=== PATIENT | male | born 1990 | race Caucasian/White ===

== ENCOUNTER 2020-01-06 15:04 | Emergency (ER) | payer OTHER, SELFPAY ==
[2020-01-06 15:10] VITALS: BP 129/81; PULSE 89; RESP 16; TEMP 36.1; O2SAT 97
--- NOTE | 2020-01-06 15:25 | ED.GENADUL_ITS ---
Discharge Plan Disposition Patient Disposition: HOME Condition: Good Discharge Details Chief Complaint: EyeProblem Clinical Impression: Abrasion, corneal Primary Care Provider: None,None ED Provider: Dustin Conde Home Meds and New Rx's Prescriptions: No Action No Known Home Meds RF: 0 Discharge Instructions Instructions: Corneal Abrasion (ED) Additional Instructions: At this time you have a mild corneal abrasion from the wound, I cannot see any wood in the eye currently. Please apply the erythromycin ointment 3 times daily in a thin strip. Please follow-up with Dr. Call[facility] center if your symptoms persist. If you notice any worsening of your symptoms, or any new symptoms such as vomiting, diarrhea, fever, chills, shortness of breath, chest pain, numbness, weakness, or fainting , please return immediately to the emergency department for reevaluation. Please follow up with your primary care provider as soon as possible for reassessment and reevaluation. As always, it was a pleasure participating in your medical care today. Referrals: [facility], [place] [Outside] Flip Loving MD [ NON-[facility] STAFF PHYSICIAN] - Discharge Data Discharge Date/Time-TO BE ENTERED AT DEPARTURE: 01/06/20 15:35 Medical Decision Making Pleasant 29-year-old male with no past medical history who does not wear contact lenses whose immunizations are up-to-date presents for working with wood and feeling like he got a wood chip stuck in his eye. Washing it out at home, was unsuccessful, but did feel like he got the wood chip out by the time he got to the ER. Current exam and eversion of both legs shows no evidence of retained foreign body, most very small corneal abrasion over the anterior aspect, no other abnormality that I can appreciate at this time. Suspect that he did have a foreign body causing subsequent mild corneal abrasion. Pain completely resolved with tetracaine. Will give erythromycin ointment for home use of comfort. Recommended close follow-up with Dr. Callaway. I have extensively reviewed the treatment plan and discharge instructions with the patient. I have addressed all patient concerns at this time. The patient was made aware of what symptoms to monitor for that would warrant a return to the emergency department. Discussed the plan with the patient, they demonstrate verbal understanding and agreement with our assessment and plan at this time. HPI General Date/Time Provider Initiated Documentation: 01/06/20 15:25 . HPI Narrative: Pleasant 29-year-old male with no significant past medical history who does not wear contact lenses whose immunizations are up-to-date who presents for concern of foreign body in his left eye. The patient was working with wood when he feels he got a wood chip stuck in his left eye. He spent 30 to 45 minutes washing it with water, but was unable to get it out. On his arrival to the ED he thought he might of got the piece out but was uncertain. He denies any vision changes, headache, numbness tingling weakness or other complaints. Related Data Home Medications Medication Instructions Recorded Confirmed Unknown [No Known Home Meds] 11/03/14 01/06/20 Allergies Allergy/AdvReac Type Severity Reaction Status Date / Time No Known Allergies Allergy Unverified 01/06/20 15:14 General Stated Complaint: EyeProblem PAUL: 4 Review of Systems All systems reviewed & are unremarkable except as noted in HPI and below PFSH Social History Smoking/Tobacco Use Status: Never Alcohol Intake: current Alcohol Intake frequency: holidays/special occasions only Drug use: Never Substance use type: does not use Do you feel safe at home: Yes Do you feel safe in your relationship?: Yes Exam Narrative Exam Narrative: 1.Const: Well-nourished, Well-developed, appearing stated age 2.Eyes: PERRL, no conjunctival injection, and symmetrical lids. Left eye: EOMI, PERRL, Peripheral vision intact. No nystagmusNo clinical signs of septal/orbital cellulitis, no redness around the eye, no proptosis. No hyphema, no signs of trauma around the eye, no periorbital emphysema. No sluggishness of the pupil. No ophthalmoplegia. No afferent pupillary defect. Fluorescein exam utilizing slit lamp does show very minimal corneal abrasion the anterior aspect, no evidence of foreign body,, negative Katey sign. Visual acuity as documented in chart. Eversion of the upper and lower lids demonstrates no evidence of retained foreign body. 3.ENT: Atraumatic external nose and ears. Moist MM. Neck: Symmetric, trachea midline, No thyromegaly. 4.CVS: +S1/S2, No murmurs or gallops. Peripheral pulses 2+ and equal in all extremities. Brisk capillary refill in all extremities. 5.RESP: Unlabored respiratory effort. Clear to auscultation bilaterally. No wheezes rales or rhonchi 6.GI: Soft, Nontender/Nondistended, No hepatosplenomegaly. No guarding or rebound. 7.MSK: Normocephalic/Atraumatic, Extremities w/o deformity or ttp No cyanosis or clubbing, Normal movement of all extremities 8.Skin: Warm, Dry. No rashes or lesions. 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 Sensation grossly intact, no focal neurologic deficits. 10.Psych: (AAO) x3. Appropriate mood and affect Course Vital Signs Vital signs: Vital Signs Temperature 36.1 C L 01/06/20 15:10 Pulse 89 01/06/20 15:10 Respiratory Rate 16 01/06/20 15:10 Blood Pressure 129/81 01/06/20 15:10 Pulse Oximetry 97 01/06/20 15:10 Temperature 36.1 C L 01/06/20 15:10 Temperature Source Tympanic 01/06/20 15:10 Pulse 89 01/06/20 15:10 Respiratory Rate 16 01/06/20 15:10 Respiratory Effort Non-Labored 01/06/20 15:13 Blood Pressure 129/81 01/06/20 15:10 Blood Pressure Position Sitting 01/06/20 15:10 Pulse Oximetry 97 01/06/20 15:10 Oxygen Delivery Method Room Air 01/06/20 15:10 Oxygen Flow Rate 0 01/06/20 15:10 Pain Level 3 01/06/20 15:10
== END 2020-01-06 15:35 | disposition home or self-care (01) ==
PROVIDERS: Emergency Provider Student in an Organized Health Care Education/Training Program
DX: S05.02XA Injury of conjunctiva and corneal abrasion without foreign body, left eye, initial encounter (principal); W20.8XXA Other cause of strike by thrown, projected or falling object, initial encounter
CPT/HCPCS: 99284; 99283

== ENCOUNTER 2023-09-02 16:17 | Emergency (ER) | payer OTHER, SELFPAY ==
[2023-09-02 16:32] VITALS: BP 142/90; PULSE 82; RESP 16; TEMP 36.4; O2SAT 100
--- NOTE | 2023-09-02 17:35 | ED.GENADUL_ITS ---
Discharge Plan Disposition Patient Disposition: Home Discharge Details Clinical Impression: Laceration of left index finger Primary Care Provider: Unknown,Unknown ED Provider: Vicente Steele Discharge Instructions Instructions: Finger Laceration (ED) Additional Instructions: You are seen in the emergency department for your finger laceration which was closed with 8 stitches. As we discussed, please follow-up in 7 to 10 days in the emergency department or urgent care or with a primary care provider to have your stitches removed. Please return sooner if your finger develops any signs of foul-smelling drainage streaking signs of infection or if you develop any fevers. For your pain please take medications as follows: 1. Take acetaminophen (Tylenol), 1,000 mg (two 500 mg tabs) every 6 hours 2. Take ibuprofen (Advil), 400 mg every 6 hours. Discharge Data Discharge Date/Time-TO BE ENTERED AT DEPARTURE: 09/02/23 17:56 HPI General Date/Time Provider Initiated Documentation: 09/02/23 16:45 . HPI Narrative: MDM Primary survey intact. Reassuring shock index. On secondary survey patient has an approximately 3 cm laceration to palmar surface of index finger on left which will require primary closure. Please see separate procedure note. Tetanus updated in the ED. Patient was placed in an AlumaFoam splint such that his injury could heal. No pain out of proportion to suggest necrotizing soft tissue infection. No fluctuance to suggest abscess. He was advised ED return for streaking signs of infection fevers chills or any foul-smelling drainage. He was advised primary care urgent care or ED return in 7 to 10 days to have sutures removed.He understood his return indications and was discharged with an empiric trial of expectant outpatient management. Suspect mildly elevated blood pressure was secondarily to pain. Chronic conditions affecting the care of the patient: N/A History obtained from an outside historian: N/A External record review: N/A Medications: Acetaminophen tetanus Social determinants of health affecting disposition: N/A Management discussed with: N/A Treatment/interventions considered: N/A Response to therapies provided: N/A HPI This is a [id number] 33-year-old male arrived to the emergency department via private vehicle in the setting of a laceration he sustained just prior to arrival to his left index finger. Patient was reportedly cleaning dishes when he inadvertently cut his hand on a tobacco blender. He is not sure when his last tetanus was. He did not take any medications at home. He was able to control the bleeding with pressure. He denies any other injuries. No preceding chest pain nausea vomiting nor headache. Exam General: Well-appearing in no acute distress speaking in complete sentences. Head: Normocephalic, atraumatic. Eye: Extraocular eye movements intact. No conjunctival injection. No scleral icterus. Ear, nose, mouth, throat: Grossly normal inspection. Normal voice, handling secretions normally. Neck: Trachea midline. Cardiovascular: Well-perfused distal extremities. Respiratory: Nonlabored respiration. Gastrointestinal: Nondistended abdomen. Musculoskeletal: On the palmar aspect of the left thumb from approximately just distal to the PIP joint to just distal to the DIP joint there is a hemostatic approximately 3 cm laceration that violates the subcutaneous tissue. Sensation and motor function intact throughout the left index finger. Patient is able to fully flex and extend the left index finger across the MCP, PIP, and DIP joints. Cap refill less than 2 seconds in the left index fingertip. 2+ left radial pulse. Left hand warm well-perfused. Skin: Normal for age and race, grossly normal temperature and turgor. No acute rash. Neurologic: Alert and appropriate, no apparent acute deficits. Psychiatric: Mood and manner are appropriate. Grooming and personal hygiene are appropriate. Related Data Allergies Allergy/AdvReac Type Severity Reaction Status Date / Time acetaminophen [From Vicodin] Allergy Intermediate Other (See Unverified 09/02/23 16:36 Comment) hydrocodone [From Vicodin] Allergy Intermediate Other (See Unverified 09/02/23 16:36 Comment) General Stated Complaint: Laceration PAUL: 3 PFSH All Active Problems (Updated 09/02/23 @ 17:36 by Vicente Steele MD) Laceration of left index finger (Acute) Social History Smoking/Tobacco Use Status: Never Smoking risk assessment performed?: Yes Alcohol Intake: current Alcohol Intake frequency: holidays/special occasions only Drug use: Never Substance use type: does not use Housing: house Do you feel safe at home: Yes Do you feel safe in your relationship?: Yes Course Vital Signs Vital signs: Vital Signs Temperature 36.4 C L 09/02/23 16:32 Pulse 82 09/02/23 16:32 Respiratory Rate 16 09/02/23 16:32 Blood Pressure 142/90 H 09/02/23 16:32 Pulse Oximetry 100 09/02/23 16:32 Temperature 36.4 C L 09/02/23 16:32 Temperature Source Temporal Artery Scan 09/02/23 16:32 Pulse 82 09/02/23 16:32 Respiratory Rate 16 09/02/23 16:32 Respiratory Effort Normal, Non-Labored 09/02/23 16:37 Blood Pressure 142/90 H 09/02/23 16:32 Pulse Oximetry 100 09/02/23 16:32 Procedures Laceration Laceration 1: Site: hand (Left index) Side (If applicable): left Size (cm): 3 Description: linear Depth: simple, single layer Local Anesthetic: Lidocaine 1% (Dorsal finger block) Amount of anesthesia used (mL): 3 Pre-repair: wound explored, irrigated extensively and deep structures intact Skin layer closed with: other (5-0 Prolene) Size (cm): 5-0 Number of sutures: 8 Technique: simple, interrupted Orthopedic Splinting/Casting Injury #1: Side: left Upper Extremity Injury Location: finger (Index finger) Upper Extremity Immobilizer: aluminum form splint PAWSS Have you Been Recently Intoxicated or Drunk Within the Last 30 days?: No Have you Ever Experienced Previous Episodes of Alcohol Withdrawal?: No Have you ever Experienced Withdrawal Seizures?: No Have you ever Experienced Delirium Tremens(DT)s?: No Have you ever undergone Alcohol Rehabilitation Treatment (i.e, inpt ot outpatient treatment programs)?: No Have you ever Experienced Blackouts?: No Have you ever Combined Alcohol with other Downers within the last 90 days?: No Have you ever Combined Alcohol with any other Substance of Abuse during the last 90 days?: No Positive Blood Alcohol level on Presentation? [PCS.BAL]: No Evidence of Increased Autonomic Activity (i.e. HR>120, tremor, sweating, agitation, nausea)?: No Result: 0
[2023-09-02] MEDS: Acetaminophen 500 MG TAB 1000 MG PO (17:46)
[2023-09-02] MEDS: Ibuprofen 600 MG TAB PO (17:47)
[2023-09-02 17:54] VITALS: BP 144/78; PULSE 84; RESP 18; O2SAT 98
== END 2023-09-02 17:56 | disposition home or self-care (01) ==
PROVIDERS: Emergency Provider Emergency Medicine
DX: S61.211A Laceration without foreign body of left index finger without damage to nail, initial encounter (principal); W29.0XXA Contact with powered kitchen appliance, initial encounter; Y93.G1 Activity, food preparation and clean up; Y92.010 Kitchen of single-family (private) house as the place of occurrence of the external cause; Z23 Encounter for immunization
CPT/HCPCS: 12002; 90471; 99283

== ENCOUNTER 2025-07-27 10:31 | Emergency (ER) | payer OTHER, SELFPAY ==
[2025-07-27] VITALS (10 sets, daily range): BP systolic 111–129; BP diastolic 76–92; PULSE 60–79; RESP 16–22; TEMP 36.6; O2SAT 96–99
--- NOTE | 2025-07-27 11:00 | DI.RAD_ITS ---
Exam(s) XR FINGER RT LITTLE EXAM: XR FINGER RT LITTLE CLINICAL HISTORY: Right pinky laceration. TECHNIQUE: 2D digital imaging was performed. Three views. COMPARISON: No exams were available for comparison FINDINGS: BONES: No acute fracture is present. No bony destructive lesion is seen. JOINTS: No dislocation present. SOFT TISSUE: Distal swelling. No foreign body. IMPRESSION: Soft tissue swelling. No evidence of fracture or foreign body. DATA REPOSITORY: RADIATION DOSE DELIVERED:
--- NOTE | 2025-07-27 11:00 | RT.EKG_ITS ---
APPROVED REPORT Exam: Resting ECG Reason for Exam: Syncope Patient Location: E HR:64 bpm ECG Measurements Heart Rate 64 AXIS OK 158 P 46 QRSd 74 QRS 39 QT 368 T 31 QTc 379 Conclusion Sinus rhythm...normal P axis, V-rate 60- 99 No Occlusion [place]
[2025-07-27] MEDS: Ibuprofen 600 MG TAB PO (11:09)
[2025-07-27] MEDS: Acetaminophen 500 MG TAB 1000 MG PO (11:09)
[2025-07-27] MEDS: Lidocaine 2% Multi-Dose 20 ML VIAL IJ (11:09)
--- NOTE | 2025-07-27 11:45 | W.ED.GENAD ---
Discharge Plan Disposition Patient Disposition: Home Discharge Details Clinical Impression: Traumatic subungual ecchymosis of right little finger, Syncope Primary Care Provider: Unknown,Unknown ED Provider: Vicente Steele Home Meds and New Rx's Prescriptions: Continued aspirin 81 mg tablet 81 mg PO DAILY Discharge Instructions Additional Instructions: You are seen in the emergency department for your finger laceration. Your x-ray showed no sign of any fractures. We elected not to remove your nail. As we discussed there is an outside chance that your nail may reform and be misshapen. As we discussed if you develop fevers streaking signs of infection or any foul-smelling drainage please return to the emergency department. Otherwise follow-up as needed with your primary care provider. For your pain please take medications as follows: 1. Take acetaminophen (Tylenol), 1,000 mg (two 500 mg tabs) every 6 hours [2. Take ibuprofen (Advil), 400 mg every 6 hours.] Stand Alone Forms: Portal Information, Work Release HPI General Date/Time Provider Initiated Documentation: 07/27/25 10:40. HPI Narrative: MDM This is a [id number] quite well-appearing normothermic and not tachycardic 25-year-old male with up-to-date tetanus and right little finger subungual hematoma which is spontaneously draining for which patient will receive dressing and discharge with empiric trial of expectant outpatient management. Tetanus was updated last year. Patient has intact full range of motion in his right little finger in flexion extension at the MCP, PIP, and DIP joints so I am not concerned for any ligamentous injury. Patient and I discussed whether or not to remove his nail plate. I advised that in the setting of damage to his nail it is certainly possible that the patient had a nailbed laceration. Given spontaneous drainage I did not feel the patient required trephination in the ED. We also discussed that there could be a risk of nail disfigurement if I did not remove his nail and replace it. We also discussed there was a risk of additional discomfort if I were to remove his nailbed. He had previously had a syncopal episode in the ED following a digital block. This was most likely vasovagal as patient felt flushed and following his digital block. Patient was standing at the sink in the emergency department near syncopal episode. I was at his side and was able to lower him to the ground. He did not strike his head. There was no tonic-clonic activity to suggest seizure. After several seconds patient immediately became alert and was oriented so I was not suspicious for CVA. I ordered an ECG which showed narrow complex normal sinus rhythm at a rate of 64. Intervals within normal limits. No signs of ischemia. No blocks. Given his syncopal episode with digital block I did not want to expose patient to additional procedures or discomfort in the ED. He understood the risk of cosmetic defect to his nail. As a result, following patient's reassuring x-ray I discharged the patient. We discussed that he should return if he developed streaking signs of infection or any foul-smelling drainage or if you have any other concerns. He understood his return indications and was discharged with an empiric trial of expectant outpatient management. HPI This is a patient with a history of a blood clot presenting with a right hand injury. The patient, who is right-handed, sustained an injury to his right little finger while operating a [employer] machine. The incident occurred when he inadvertently inserted his finger into a channel, resulting in a backward tear of the finger. The patient reports that the injury did not feel great and that he did not lose consciousness. He is able to move the affected finger, although it is painful. The patient takes baby aspirin daily due to a blood clot diagnosed 6 months ago. 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 This regimen was initiated by his primary care physician. Exam General: Well-appearing in no acute distress speaking in complete sentences. Head: Normocephalic, atraumatic. Eye: Extraocular eye movements intact. No conjunctival injection. No scleral icterus. Ear, nose, mouth, throat: Grossly normal inspection. Normal voice, handling secretions normally. Neck: Trachea midline. Cardiovascular: Well-perfused distal extremities. Respiratory: Nonlabored respiration. Gastrointestinal: Nondistended abdomen. Musculoskeletal: Right little finger with signs of recent bleeding at fingernail, primarily on the radial aspect of the dorsal little finger. Full range of motion across the MCP, PIP, and DIP joints of the right little finger. There is an approximately 50% subungual hematoma. Subungual hematoma appears to have been spontaneously draining. Base of nail appears adherent to matrix. Skin: Normal for age and race, grossly normal temperature and turgor. No acute rash. Neurologic: Alert and appropriate, no apparent acute deficits. Psychiatric: Mood and manner are appropriate. Grooming and personal hygiene are appropriate. Related Data Home Medications Medication Instructions Recorded Confirmed aspirin 81 mg tablet 81 mg PO DAILY 07/07/25 07/27/25 Allergies Allergy/AdvReac Type Severity Reaction Status Date / Time acetaminophen (From Vicodin) Allergy Intermediate Other (See Unverified 07/27/25 10:38 Comment) hydrocodone (From Vicodin) Allergy Intermediate Other (See Unverified 07/27/25 10:38 Comment) General Stated Complaint: Laceration PAUL: 4 Course Vital Signs Vital signs: Vital Signs Temperature 36.6 C 07/27/25 10:35 Pulse 79 07/27/25 10:35 Respiratory Rate 18 07/27/25 10:35 Blood Pressure 128/92 H 07/27/25 10:35 Pulse Oximetry 99 07/27/25 10:35 Temperature 36.6 C 07/27/25 10:35 Pulse 62 07/27/25 11:16 Pulse 67 07/27/25 11:16 Respiratory Rate 22 07/27/25 11:16 Blood Pressure 111/80 07/27/25 11:16 Blood Pressure Mean 88 07/27/25 11:16 Pulse Oximetry 96 07/27/25 11:16 Oxygen Delivery Method Room Air 07/27/25 11:05 Oxygen Flow Rate 0 07/27/25 11:05 Pain Level 5 07/27/25 11:04 Procedure Nerve Block 1st Nerve Block: Date of Procedure: 07/27/25 Time of procedure: 11:00 Provider that performed the procedure: Vicente Steele Patient Consented: Verbally Local Anesthetic: Lidocaine 2% Amount of anethetic used(mL): 3 Sterility: Non Sterile Laterality: Right Nerve Blocks: digital Ultrasound: Not used. Procedure Tolerated: No Complications Procedure Outcome: Successful Procedure Description/Note: Right little finger digital block was performed following cleaning with chlorhexidine. PFSH All Active Problems (Updated 07/27/25 @ 16:04 by Vicente Steele MD) Syncope (Chronic) Traumatic subungual ecchymosis of right little finger (Acute) Hydrocele (Acute) Spermatocele (Acute) Social History Smoking/Tobacco Use Status: Never Smoking risk assessment performed?: Yes Alcohol Intake: current Alcohol Intake frequency: holidays/special occasions only Drug use: Never Substance use type: does not use Housing: house Do you feel safe at home: Yes Do you feel safe in your relationship?: Yes
== END 2025-07-27 12:14 | disposition home or self-care (01) ==
PROVIDERS: Emergency Provider Emergency Medicine
DX: S60.151A Contusion of right little finger with damage to nail, initial encounter (principal); X58.XXXA Exposure to other specified factors, initial encounter; Y99.0 Civilian activity done for income or pay
CPT/HCPCS: 99283; 99284; 36416; 82962; 64450; 93005; 73140; 93010; J2003

== ENCOUNTER 2025-08-20 08:40 | Emergency (ER) | payer SELFPAY ==
[2025-08-20 08:46] VITALS: BP 137/96; PULSE 85; RESP 18; TEMP 36.7; O2SAT 99
[2025-08-20 08:56] VITALS: BP 137/96; PULSE 85; RESP 18; TEMP 36.7; O2SAT 99
--- NOTE | 2025-08-20 08:58 | W.ED.GENAD ---
Discharge Plan Disposition Patient Disposition: Home Condition: Stable Discharge Details Clinical Impression: Paronychia of right little finger Primary Care Provider: Unknown,Unknown ED Provider: Tootie Sam Home Meds and New Rx's Prescriptions: New sulfamethoxazole-trimethoprim [Bactrim DS] 800-160 mg tablet 1 tab PO BID 7 Days Qty: 14 0RF No Action aspirin 81 mg tablet 81 mg PO DAILY Discharge Instructions Instructions: Paronychia ED Additional Instructions: You were seen in the emergency department today for evaluation of swelling, pain, and redness around the fingernail on your right pinky finger, consistent with an early skin infection known as a paronychia. In our department you had a full physical examination performed, and we are going to start you on oral antibiotics. Please take this medication twice per day for the next week, and take all the medication until it is gone, even if you start to feel better. You should soak the finger in warm water 1-2 times per day to allow any pus to drain out. Additionally, you should use topical antibiotic ointment and a bandage to keep the area clean and dry. Please use therapeutic dosing of Tylenol (acetaminophen) & Advil (ibuprofen) in an alternating fashion as follows: Take 1000mg of Tylenol every 6 hours without missing doses- that is 4 times per day. [place] in between the Tylenol doses, take 600mg of Advil also on a 6 hour schedule, that is also 4 times per day. With this strategy, you will be taking something for fever/pain as often as every 3 hours. The daily maximum dosing of Tylenol is 4000mg, and the daily maximum dosing of Advil is 2400mg. Please note that some common cold medications & prescription pain medications may contain acetaminophen and you need to read OTC drug labels and factor that in to maximum daily doses. Please follow-up with your primary care provider in the next few days to discuss this visit and any symptoms that change, worsen, or persist. Thank you for allowing us to be part of your care. Stand Alone Forms: Portal Information, Work Release HPI General Mode of arrival: ambulatory. Date/Time Provider Initiated Documentation: 08/20/25 08:43. Limitations to Documentation: no limitations. Information obtained by: patient and old records reviewed. HPI Narrative: This is a 35-year-old male patient with a history most notable for atraumatic subungual ecchymosis of his right little finger approximately 1 month ago, presenting for evaluation of swelling, redness, and increasing pain around that fingernail. The patient reports he first noticed this last night, has not sustained any distinct trauma or injury to the area, states that he was able to pull the nail off a week or 2 ago, and has not been experiencing difficulties with this. He keeps the area dressed with a bandage, and rinse his it off in the shower with warm water. The patient has not had any difficulty ranging or using his finger or hand, but does feel the swelling when he does so. No numbness or tingling, no fevers or chills. Related Data Home Medications ?Medication ?Instructions ?Recorded ?Confirmed aspirin 81 mg tablet 81 mg PO DAILY 07/07/25 08/20/25 sulfamethoxazole 800 1 tab PO BID 7 days #14 tabs 08/20/25 mg-trimethoprim 160 mg tablet (Bactrim DS) Previous Rx's ?Medication ?Instructions ?Recorded sulfamethoxazole 800 1 tab PO BID 7 days #14 tabs 08/20/25 mg-trimethoprim 160 mg tablet (Bactrim DS) Allergies Allergy/AdvReac Type Severity Reaction Status Date / Time acetaminophen (From Vicodin) Allergy Intermediate Other (See Verified 08/20/25 08:50 Comment) hydrocodone (From Vicodin) Allergy Intermediate Other (See Verified 08/20/25 08:50 Comment) General Stated Complaint: Cellulitis PAUL: 4 Exam Narrative Exam Narrative: Gen: Awake and alert, in no apparent distress HEENT: Non-icteric sclera Neck: Supple Lungs: No apparent respiratory distress, normal respiratory effort. CV: Appears well perfused Abdomen: Non-distended MSK: Moves 4 extremities without apparent limitation in ROM. The patient's right pinky has a deformed recently removed nail, with mild surrounding redness, warmth, and induration that does not extend past the DIP. I do not palpate any fluctuance, the ulnar aspect of the distal right pinky does have increased tenderness compared to the contralateral side. Full resisted strength with flexion and extension of the affected digit. Skin: Visualized skin without rashes, cyanosis. Neuro: Normal Gait, no obvious focal deficits or facial asymmetry. Speaks in full, clear sentences. Psych: Appropriate for situation. Course Vital Signs Vital signs: Vital Signs Temperature 36.7 C 08/20/25 08:46 Pulse 85 08/20/25 08:46 Respiratory Rate 18 08/20/25 08:46 Blood Pressure 137/96 H 08/20/25 08:46 Pulse Oximetry 99 08/20/25 08:46 Temperature 36.7 C 08/20/25 08:56 Temperature Source Tympanic 08/20/25 08:56 Pulse 85 08/20/25 08:56 Respiratory Rate 18 08/20/25 08:56 Blood Pressure 137/96 H 08/20/25 08:56 Blood Pressure Position Supine 08/20/25 08:56 Pulse Oximetry 99 08/20/25 08:56 Oxygen Delivery Method Room Air 08/20/25 08:56 Oxygen Flow Rate 0 08/20/25 08:56 Pain Level 0 08/20/25 08:56 Medical Decision Making This is a 35-year-old male patient presenting for evaluation of swelling and redness with increasing pain around his right pinky. Differential includes but is not limited to early paronychia, cellulitis, the patient is reassuringly systemically well and I have no concern for sepsis or bacteremia. The infection appears localized, and his range of motion and preserved neurovascular examination is reassuring against deep space infection such as flexor tenosynovitis. No trauma to suggest fracture, dislocation or foreign body. I do not see an indication to perform incision and drainage at this time given the lack of palpable fluctuance. I will provide the patient with a prescription for Bactrim for initial antibiosis and counseled him on warm soaks and topical antibiotic ointment. At this time, the patient has had a full medical evaluation and is safe for discharge to home. They are hemodynamically stable, ambulatory, and tolerating PO. They are understanding of the follow-up plan and return precautions. They left our facility without incident. Tootie Sam MD [facility] All Active Problems (Updated 08/20/25 @ 08:59 by Tootie Sam MD) Paronychia of right little finger (Acute) Syncope (Chronic) Traumatic subungual ecchymosis of right little finger (Acute) Hydrocele (Acute) Spermatocele (Acute) Social History Smoking/Tobacco Use Status: Never Smoking risk assessment performed?: Yes Alcohol Intake: current Alcohol Intake frequency: holidays/special occasions only Drug use: Never Substance use type: does not use Housing: house Do you feel safe at home: Yes Do you feel safe in your relationship?: Yes
== END 2025-08-20 09:10 | disposition home or self-care (01) ==
LOC: ER 09:02
PROVIDERS: Emergency Provider Emergency Medicine
DX: L03.011 Cellulitis of right finger (principal); Y99.0 Civilian activity done for income or pay
CPT/HCPCS: 99283 ×2